=== PATIENT | female | born 1995 | race Hispanic/Latino ===

== ENCOUNTER 2019-08-13 11:01 | Inpatient (IN) ==
[2019-08-13 11:32] LABS: URINE SOURCE CLEAN CATCH
[2019-08-13 11:35] LABS: BASO# 0.01 X1000 (0.0-0.2); BASO% 0.1 % (0.0-0.8); EOS# 0.04 X1000 (0.0-0.7); EOS% 0.5 % (0.0-10.0); HEMOGLOBIN 11.3 g/dL (12.0-16.0); IMM GRAN# 0.01 X1000 (0.0-0.04); IMM GRAN% 0.1 % (0.0-0.5); LYMPH# 2.11 X1000 (1.2-3.4); MCH 28.5 PG (27-31); MCHC 33.2 g/dL (33-37); MCV 85.6 FL (81-99); MONO# 0.47 X1000 (0.11-0.59); MONO% 5.8 % (1.7-9.3); MPV 10.3 FL (7.4-10.4); NEUT# 5.49 X1000 (1.4-6.5); NEUT% 67.5 % (42.2-75.2); PLT 236 X1000 (130-400); RBC 3.97 XMIL (4.2-5.4); RDW 12.2 % (11.5-14.5); WBC 8.13 X1000 (4.8-10.8)
[2019-08-13 11:36] LABS: BILIRUBIN URINE NEGATIVE (NEGATIVE); BLOOD URINE NEGATIVE (NEGATIVE); COLOR YELLOW; GLUCOSE URINE NEGATIVE (NEGATIVE); KETONE URINE NEGATIVE (NEGATIVE); LEUKOCYTES URINE LARGE (NEGATIVE); NITRITE URINE NEGATIVE (NEGATIVE); PROTEIN URINE TRACE mg/dL (NEGATIVE); SP GRAVITY URINE 1.011; TURBIDITY URINE HAZY (CLEAR); UROBILINOGEN URINE NORMAL (NORMAL)
[2019-08-13 11:37] LABS: UR EPITHELIAL CELLS >10 /HPF (<10); URINE BACTERIA 2+ /HPF; URINE RBC <10 /HPF (<10); URINE WBC TNTC /HPF (<10)
[2019-08-13 11:52] LABS: AGAP 12; ALBUMIN 4.4 g/dL (3.5-5.0); ALKALINE PHOSPHATASE 88 U/L (32-104); BUN 11 mg/dL (8-22); CALCIUM 9.9 mg/dL (8.8-10.2); CHLORIDE 104 mmol/L (98-107); COSMO 277; CREATININE 0.5 mg/dL (0.5-0.9); ESTIMATED GFR > 60; GLUCOSE 136 mg/dL (70-104); GOT 21 U/L (10-30); GPT 15 U/L (10-36); POTASSIUM 3.7 mmol/L (3.5-5.1); SODIUM 138 mmol/L (136-145); TCO2 22 mmol/L (25-35); TOTAL PROTEIN 7.5 g/dL (6.3-8.3)
[2019-08-13 12:08] LABS: LIPASE 1817 U/L (13-60)
[2019-08-13] MEDS ORDERED: TYLENOL PO PRN (13:22)
[2019-08-13] MEDS ORDERED: ZOFRAN IV PRN (13:22)
--- NOTE | 2019-08-13 13:39 | PROVIDER DOCUMENTATION ---
This chart was entered by Valerie Cotton Scribe, acting as scribe for Vish Jean MD. HPI-Abdominal Pain/GI Problem - General Chief Complaint: Abdominal Pain Stated Complaint: STOMACH PAINS Time Seen by Provider: 08/13/19 11:38 Source: patient Allergies/Adverse Reactions: Patient Allergies Allergy/AdvReac Type Severity Reaction Status Date / Time No Known Allergies Allergy Verified 08/13/19 11:10 Home Medications: Home Medication List Medication Instructions Recorded Confirmed Last Taken Type NK [No Home Medications] 08/13/19 08/13/19 Unknown History - History of Present Illness-ABD Nature of Presenting Problems: 24 y/o female presents to ED with sharp upper abdominal pain and N/V onset ye sterday. Pt reports she has hx of similar pain. Pt states last bowel movement was yesterday. Pt is alert and oriented. Abdominal Pain Onset Location: reports: RUQ, LUQ, epigastric Pain Radiation: reports: no radiation Quality of Pain: reports: sharp Severity in ED: reports: moderate Onset/Duration: reports: 24 hours ago Timing: reports: still present Activities at Onset: reports: none Exposure to sick contacts?: No Modifying Factors: worse with: palpation Associated Symptoms: reports: nausea, vomiting, other (upper abdominal pain) Last BM: 24 hours ago Dark Stools Present?: reports: none noticed Rectal Bleeding: reports: none Rectal Pain: reports: none Similar Symptoms Previously?: Yes Recently seen or treated by another doctor?: No Review of Systems - Adult - REVIEW OF SYSTEMS - ADULT Constitutional: denies: chills, fever Eyes: reports: no symptoms reported Ears, Nose, Mouth & Throat: reports: no symptoms reported Cardiovascular: denies: chest pain, palpitations Respiratory: denies: cough, shortness of breath Gastrointestinal: reports: abdominal pain, nausea, vomiting. denies: diarrhea Genitourinary: reports: no symptoms reported Musculoskeletal: reports: no symptoms reported Integumentary: reports: no symptoms reported Neurological: reports: no symptoms reported Psychiatric: reports: no symptoms reported Endocrine: reports: no symptoms reported Hematologic/Lymphatic: reports: no symptoms reported Allergic/Immunologic: reports: no symptoms reported All Other Systems: Reviewed and Negative Past History - Adult - PAST MEDICAL HISTORY-ADULT Review of Records: reports: Old Records Reviewed, Nursing Assessment Review, Medications Reviewed Major Childhood Illnesses: reports: denies history - PRIOR SURGERIES/PROCEDURES Surgical/Procedure History: reports: none - IMMUNIZATION STATUS Childhood Immunizations: See Nurse Assessment Flu Vaccine: See Nurse Assessment - FAMILY HISTORY Family History: reviewed, not pertinent - SOCIAL HISTORY Smoking: non-smoker Substance Use: none/never Alcohol Use Frequency: never Living Situation: family Physical Exam-General - PHYSICAL EXAM-ADULT Initial Vital Signs Reviewed: Yes - CONSTITUTIONAL General Appearance: appears well, alert, no apparent distress - EYES Eyes: PERRL/EOMI, pink conjunctivae - HEAD, EARS, NOSE, MOUTH & THROAT HENMT: normocephalic/atraumatic, moist mucous membranes, normal ENT inspection - RESPIRATORY Respiratory: chest non-tender, lungs clear, normal breath sounds - CARDIOVASCULAR Cardiovascular: normal peripheral pulses, regular rate, rhythm - GASTROINTESTINAL (ABDOMEN) Abdominal Exam: normal bowel sounds, soft, tenderness (diffusely tender, but more painful in the upper abdomen) - MUSCULOSKELETAL Back Exam: normal inspection, no CVA tenderness, no vertebral tenderness Extremity: normal range of motion, non-tender - SKIN Integumentary: normal color, warm/dry - NEUROLOGIC Neurologic: grossly normal - PSYCHIATRIC Psych/Mental Status: normal mood/affect, normal thought content, normal thought process, oriented x 3 Progress - PLAN OF CARE/RESULTS Progress/Plan/Lab Results: Vital Signs - 8 hr 08/13/19 11:06 Temperature 97.8 F Pulse Rate 62 Respiratory Rate 18 Blood Pressure 112/58 O2 Sat by Pulse Oximetry 100 Bedside Urine ED: Urine Bedside Start: 08/13/19 11:12 Freq: ORDERED Status: Active Protocol: Activity Type Activity Date Activity User E-Sign Co-Sign Detail Recorded Client Recorded Date Recorded By Document 08/13/19 11:23 [id number] 08/13/19 11:24 [id number] 08/13/19 11:23 Point of Care [Bedside Point of Care] -Lot # [id number] - Results Negative -Control Line Visible? Yes Laboratory Results - last 24 hr 08/13/19 08/13/19 08/13/19 11:17 11:23 11:23 WBC 8.13 RBC 3.97 L Hgb 11.3 L Hct 34.0 L MCV 85.6 MCH 28.5 MCHC 33.2 RDW Std Deviation 12.2 Plt Count 236 MPV 10.3 Immature Gran % (Auto) 0.1 Neut % (Auto) 67.5 Lymph % (Auto) 26.0 Winn % (Auto) 5.8 Eos % (Auto) 0.5 Baso % (Auto) 0.1 Immature Gran # (Auto) 0.01 Neut # (Auto) 5.49 Lymph # (Auto) 2.11 Winn # (Auto) 0.47 Eos # (Auto) 0.04 Baso # (Auto) 0.01 Sodium Potassium Chloride Carbon Dioxide Anion Gap BUN Creatinine Estimated GFR/1.73 m2 BUN/Creatinine Ratio Glucose Calculated Osmolality Calcium Total Bilirubin AST ALT Alkaline Phosphatase Total Protein Albumin Globulin Albumin/Globulin Ratio Amylase 805 H Urine Source CLEAN CATCH Urine Color YELLOW Urine Turbidity HAZY Urine pH 8.0 Ur Specific [place] 1.011 Urine Protein TRACE A Ur Glucose (Stick) NEGATIVE Ur Ketones (Stick) NEGATIVE Urine Blood NEGATIVE Urine Nitrite NEGATIVE Urine Bilirubin NEGATIVE Urobilinogen Dipstick NORMAL Urine Leukocytes LARGE A Urine WBC (Auto) TNTC A Urine RBC (Auto) <10 U Epithel Cells (Auto) >10 A Urine Bacteria (Auto) 2+ 08/13/19 11:23 WBC RBC Hgb Hct MCV MCH MCHC RDW Std Deviation Plt Count MPV Immature Gran % (Auto) Neut % (Auto) Lymph % (Auto) Winn % (Auto) Eos % (Auto) Baso % (Auto) Immature Gran # (Auto) Neut # (Auto) Lymph # (Auto) Winn # (Auto) Eos # (Auto) Baso # (Auto) Sodium 138 Potassium 3.7 Chloride 104 Carbon Dioxide 22 L Anion Gap 12 BUN 11 Creatinine 0.5 Estimated GFR/1.73 m2 > 60 BUN/Creatinine Ratio 22 Glucose 136 H Calculated Osmolality 277 Calcium 9.9 Total Bilirubin 0.40 AST 21 ALT 15 Alkaline Phosphatase 88 Total Protein 7.5 Albumin 4.4 Globulin 3.0 Albumin/Globulin Ratio 1.0 Amylase Urine Source Urine Color Urine Turbidity Urine pH Ur Specific [place] Urine Protein Ur Glucose (Stick) Ur Ketones (Stick) Urine Blood Urine Nitrite Urine Bilirubin Urobilinogen Dipstick Urine Leukocytes Urine WBC (Auto) Urine RBC (Auto) U Epithel Cells (Auto) Urine Bacteria (Auto) Orders Category Date Time Status ED: Urine Bedside ORDERED Care 08/13/19 11:[address] ABD/PELVIS W/IV CONT ONLY [CT] Stat Exams 08/13/19 11:56 Ordered AMYLASE [CHEM] Stat Lab 08/13/19 11:23 Completed CBC WITH DIFF [HEME] Stat Lab 08/13/19 11:23 Completed COMPREHENSIVE METABOLIC PANEL [CHEM] Stat Lab 08/13/19 11:23 Results LIPASE [CHEM] Stat Lab 08/13/19 11:23 Results URINALYSIS W/POSS RFLX CULT [URINALYSIS] Stat Lab 08/13/19 11:17 Completed Result Diagrams: 08/13/19 11:23 08/13/19 11:23 - CT/MRI 1 CT Study: Abdomen, Pelvis Impression: See EMR Report - CONSULTS/PCP/HOSPITALIST Notification #1 *Consult/PCP/Hospitalist*: Dr. Jefferson Time Discussed: 13:06 Reason/Comments: Pancreatitis Consult Disposition: Admit Departure - Departure Date of Disposition Decision: 08/13/19 Time of Disposition Decision: 12:44 DIAGNOSIS: Pancreatitis Qualifiers: Chronicity: acute Pancreatitis type: unspecified pancreatitis type Acute pancreatitis complication: unspecified Qualified Code(s): K85.90 - Acute pancreatitis without necrosis or infection, unspecified Disposition: ADMITTED INPATIENT 09 Certified Medical Emergency: Emergent Condition: Stable Referrals and Follow-Ups: None,PCP [Primary Care Provider] - - Critical Care Note This patient required my direct & personal management of CC.: No Attestation - Physician/ GREG Attestation Patient care was provided by Advanced Practice Provider:: No The physician spent face to face time with patient:: Yes Advanced Practice Provider documentation review:: Supervising physician onsite and consulted in the evaluation and care of this patient. The physician did have a face to face encounter with the patient. This chart was documented by the indicated scribe, (Valerie Cotton Scribe) and accurately reflects the services I performed and decisions made by me, Vish Jean MD, as attested by the provider's signature.
--- NOTE | 2019-08-13 14:10 | Diag Imaging Result Doc PS360 ---
EXAM: CT ABD/PELVIS W/IV CONT ONLY HISTORY: epigastric pain TECHNIQUE: CT abdomen and pelvis without contrast COMPARISON: None. FINDINGS: There is motion which degrades image quality. No calcified gallstones or adjacent inflammation. No focal hepatic abnormality identified on this noncontrasted exam. No splenomegaly. No focal pancreatic abnormality. Normal adrenal glands. No renal stones. No hydronephrosis. Normal aorta. Normal appendix. No abscess. There is stool throughout the colon. No bowel obstruction. Urinary bladder is not distended. The small ovarian cysts. Normal uterus. IMPRESSION: Constipation This exam was performed using automated exposure control, adjustment of mA or kV according to patient size, and/or use of iterative reconstruction technique. Electronically signed by Roni Edmond 08/13/2019 2:08 PM
[2019-08-13] MEDS: DILAUDID IV PRN ×2 (14:45→22:34)
[2019-08-13] MEDS: ZOSYN 3.375 GM in NS 50 ML IV SCH ×2 (14:55→22:32)
[2019-08-13] MEDS: NS 1,000 ML IV SCH ×2 (15:00→17:05)
--- NOTE | 2019-08-13 15:30 | HISTORY AND PHYSICAL ---
CHIEF COMPLAINT: Abdominal pain. 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 She has been complaining of upper epigastric abdominal pain. Nausea and vomiting started a couple of days ago, has continued to worsen. Does note that she has had similar pain in the past. ALLERGIES: No known drug allergies. MEDICATIONS: None. REVIEW OF SYSTEMS: As noted above. Positive for nausea, vomiting. Denies any hematemesis, hematochezia, melena, diarrhea. Denies any fevers or chills. PAST MEDICAL HISTORY: She has no chronic active medical problems. FAMILY HISTORY: Noncontributory. SOCIAL HISTORY: Does not smoke or drink. PHYSICAL EXAMINATION: VITAL SIGNS REVIEWED: Temperature 97 degrees, pulse 62, respiratory rate 18, BP 112/58, satting 100 percent on room air. GENERAL: Patient is awake. She is pleasant. She is in no respiratory distress. She is ill appearing secondary to pain. HEENT: Normocephalic. NECK: Supple. CARDIOVASCULAR: Regular rate. CHEST: Clear. ABDOMEN: Soft. Tender in the epigastric region. No rebound. No guarding. EXTREMITIES: Moves all extremities. NEUROLOGIC: There are no focal changes. ASSESSMENT: Acute pancreatitis. PLAN: We are going to admit her to the hospital. IV fluids, pain control, and will follow. cc: Gagandeep Jefferson MD
[2019-08-14] MEDS: ZOSYN 3.375 GM in NS 50 ML IV SCH ×4 (03:40→21:43)
[2019-08-14] MEDS: NS 1,000 ML IV SCH ×3 (03:41→17:50)
[2019-08-14 06:41] LABS: HEMATOCRIT 33.9 % (37.0-47.0); HEMOGLOBIN 10.6 g/dL (12.0-16.0); MCH 27.9 PG (27-31); MCHC 31.3 g/dL (33-37); MCV 89.2 FL (81-99); MPV 10.9 FL (7.4-10.4); RBC 3.8 XMIL (4.2-5.4); RDW 12.7 % (11.5-14.5); WBC 8.31 X1000 (4.8-10.8)
[2019-08-14 07:01] LABS: AGAP 15; ALBUMIN 3.9 g/dL (3.5-5.0); ALKALINE PHOSPHATASE 80 U/L (32-104); BUN 12 mg/dL (8-22); CALCIUM 9.2 mg/dL (8.8-10.2); CHLORIDE 107 mmol/L (98-107); COSMO 277; CREATININE 0.4 mg/dL (0.5-0.9); ESTIMATED GFR > 60; GLUCOSE 65 mg/dL (70-104); GOT 19 U/L (10-30); GPT 13 U/L (10-36); LIPASE 241 U/L (13-60); MAGNESIUM 1.8 mg/dL (1.5-2.7); POTASSIUM 3.8 mmol/L (3.5-5.1); SODIUM 140 mmol/L (136-145); TCO2 18 mmol/L (25-35); TOTAL PROTEIN 6.9 g/dL (6.3-8.3)
[2019-08-14] MEDS: DILAUDID IV PRN ×2 (08:13→21:45)
[2019-08-14 12:54] LABS: CHOLESTEROL 147 mg/dL (0-200); HDL 41 mg/dL (45-65); LDL 94 mg/dL; TRIGLYCERIDES 61 mg/dL (35-135); VLDL 12 mg/dL
[2019-08-15] MEDS: ZOSYN 3.375 GM in NS 50 ML IV SCH ×2 (02:41→09:26)
[2019-08-15] MEDS: NS 1,000 ML IV SCH (02:42)
[2019-08-15 06:02] VITALS: BP 90/47
[2019-08-15] MEDS ORDERED: NORCO-5 PO PRN (09:41)
[2019-08-15] MEDS ORDERED: OMNICEF PO SCH (09:45)
--- NOTE | 2019-08-15 12:14 | DISCHARGE SUMMARY ---
ADMISSION DATE: 08/13/2019 DISCHARGE DATE: 08/15/2019 PRIMARY CARE PROVIDER: None. PERTINENT PROCEDURES: Abdomen and pelvis CT, constipation. DISCHARGE DIAGNOSIS: Idiopathic acute pancreatitis. HOSPITAL COURSE: Briefly, Ms. Rodriguez is a 28-year-old female who came to the ED complaining of upper epigastric abdominal pain, nausea, vomiting that had started a couple days prior and continued to worsen. She did note that she has had similar pain in the past. Workup in the ED showed acute pancreatitis with an elevated amylase and lipase. Liver function tests were completely normal. Her abdomen and pelvis CT just showed constipation. She was admitted to the hospital, aggressively hydrated, placed on a pain regimen and antiemetics, as well as prophylactically on antibiotics. She has had a uneventful hospital course. Her amylase and lipase have continued to trend down. She is currently abdominal pain free and is tolerating a GI soft diet and will be discharged home today to follow up with a primary care provider from the list that has been provided to her. Vital signs at time of discharge: Temperature is 97.8 degrees, heart rate 50, respirations 16, blood pressure 90/47, O2 is 100% on room air. FOLLOWUP: Ms. Rodriguez is being discharged back home with self care. She is to follow up with a primary care provider that has been provided to her within the next 7 to 10 days. She is to continue to follow a soft food eating plan. She has been given education on acute pancreatitis. She has been educated to avoid any alcohol, which she denies drinking. She can return to the ED or call 911 for any worsening of her symptoms. Dictated by HI Briones for Gagandeep Jefferson MD cc: Gagandeep Jefferson MD
--- NOTE | 2019-08-16 15:49 | DISCHARGE SUMMARY ---
ADMISSION DATE: 08/13/2019 DISCHARGE DATE: 08/15/2019 ADDENDUM REPORT The patient was seen and examined while on the cellphone. The patient was able to tolerate a full diet on the day of discharge. She was admitted to the hospital secondary to pancreatitis. Her triglycerides were normal. She does not drink. She has no gallbladder issues. Uncertain of the exact etiology of her pancreatitis. However, as she is improved and she is tolerating a diet, therefore, she will be discharged home. cc: Gagandeep Jefferson MD MTDD
== END 2019-08-15 11:25 | disposition home or self-care (01) | DRG 440 ==
LOC: P.ED 11:01 → P.MEDSURG 13:29
PROVIDERS: ATTEND Family Medicine